=== PATIENT | male | born 1995 | race Caucasian/White ===

== ENCOUNTER 2019-09-03 02:35 | Emergency (ER) | payer OTHER ==
[~2019-09-03] VITALS: Ht 172.7 cm; Wt 72.6 kg
[~2019-09-03 02:35] MED LIST: [UNRECOGNIZED DRUG - CODE] IV
[2019-09-03 02:43] VITALS: BP 119/64
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
[2019-09-03] MEDS ORDERED: KETOROLAC 60 MG/2 ML VIAL IM ONE (04:05)
[2019-09-03] MEDS ORDERED: ACETAMINOPHEN EXTRA STRENGTH 500 MG TAB PO ONE (04:15)
[2019-09-03] MEDS ORDERED: IBUPROFEN 400 MG TAB PO ONE (04:15)
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
[2019-09-03 05:36] VITALS: BP 100/51
== END 2019-09-03 05:35 | disposition home or self-care (01) ==
LOC: MED 02:35
DX: S39.012A Strain of muscle, fascia and tendon of lower back, initial encounter (principal); M79.10 Myalgia, unspecified site; Z79.899 Other long term (current) drug therapy; V89.2XXA Person injured in unspecified motor-vehicle accident, traffic, initial encounter; Y93.89 Activity, other specified; Y92.89 Other specified places as the place of occurrence of the external cause; Y99.8 Other external cause status
CPT/HCPCS: 72100; 99283; J1885